=== PATIENT | male | born 1960 | race Caucasian/White ===

== ENCOUNTER 2019-12-10 14:10 | Outpatient (CLI) | payer BC ==
--- NOTE | 2019-12-11 08:06 | MRI ---
EXAM: MRI of the pelvis/prostate without and with contrast HISTORY: elevated PSA. Negative prostate biopsy one year ago. COMPARISON: None TECHNIQUE: Multiplanar multisequence MR images were obtained of the pelvis without and with IV contra st. Evaluation of this exam was performed with a [employer] workstation. FINDINGS: Central gland: Moderate hypertrophy of the central gland consistent with BPH. No suspicious low T2 si gnal lesion is seen. Peripheral zone: No restricted diffusion is seen. No low signal on ADC map. Seminal vesicles: Intact without abnormality Neurovascular bundles: Intact Pelvic lymph nodes: No pelvic adenopathy Other visualized intrapelvic structures: Unremarkable Osseous structures: No marrow signal abnormality IMPRESSION: PI-RADS Category 2-low likelihood that a clinically significant cancer is present.
== END 2019-12-10 14:11 | disposition home or self-care (01) ==
LOC: TBSIIMAG 14:10
PROVIDERS: ATTEND Urology
DX: R97.20 Elevated prostate specific antigen [PSA] (principal)
CPT/HCPCS: 72197